=== PATIENT | female | born 1965 | race Caucasian/White ===

== ENCOUNTER 2025-04-21 15:07 | Observation (INO) | payer MEDICAID, SELFPAY ==
--- NOTE | 2025-04-20 07:00 | EKG_ITS ---
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
[2025-04-20 10:28] VITALS: BMI 53.1
[2025-04-20 11:02] LABS: Collection Type, Urine Clean Catch
--- NOTE | 2025-04-20 11:48 | ESHP_ITS ---
RE: ELIJAH HELM : 1965 DATE OF ADMISSION: 04/20/2025 HISTORY OF PRESENT ILLNESS: A 59-year-old female who was referred to me. She has a mass in her urinary bladder. She has a history of fibroids in the uterus. She had a history of gross hematuria before. There is no burning in the urine. PAST MEDICAL HISTORY: There is no history of diabetes mellitus. She does have a history of hypertension. PAST SURGICAL HISTORY: Cholecystectomy and a cyst from the cervix removed. SOCIAL HISTORY: The patient has one son. HOME MEDICATIONS: She takes no medications. ALLERGIES: SHE IS ALLERGIC TO CODEINE AND SOME BLOOD PRESSURE MEDICATION. MONOPRIL. PHYSICAL EXAMINATION: HEENT: Normal. NECK: Supple. LUNGS: Clear. CARDIOVASCULAR: Heart sounds are normal. ABDOMEN: Soft without any organomegaly. No guarding. No rigidity. The patient is extremely obese, 320 pounds. PELVIC: Examination is negative. LABORATORY DATA: Cystoscopy revealed a mass on the dome of the bladder about 2- 3 cm in size. IMPRESSION: 1. Bladder tumor. 2. History of gross hematuria. 3. Obesity. PLAN: Transurethral resection of bladder tumor. Planned procedure risks and complications have been discussed with the patient. The patient has understood them and agreed to proceed. DT: 11:12:32 TT: 11:46:00 Ref: [id number] - TID: [id number]
[2025-04-20 12:36] LABS: Basophils % (Auto) 0 % (0-2.5); Eosinophils # (Auto) 0.1 Thou/mm3 (0.0-0.5); Eosinophils % (Auto) 1 % (0-10); Hematocrit 42.7 % (36.0-46.0); Immature Granulocytes % (Auto) 0 % (0-0); Immature Granulocytes Auto 0.02 Thou/mm3 (0.00-0.00); Lymphocytes # (Auto) 1.8 Thou/mm3 (1.0-4.8); Lymphocytes % (Auto) 22 % (10-50); Mean Corpuscular HGB Conc 32.8 g/dl (31.0-37.0); Mean Corpuscular Hemoglobin 27.3 pg (25.0-35.0); Mean Corpuscular Volume 83 fL (80-100); Monocytes # (Auto) 0.5 Thou/mm3 (0.0-0.8); Monocytes % (Auto) 7 % (0-12); Neutrophils # (Auto) 5.7 Thou/mm3 (1.8-7.7); Neutrophils % (Auto) 70 % (37-80); Nucleated Red Blood Cell % 0 /100 WBC (0); Platelet Count 242 Thou/mm3 (140-440); RDW Standard Deviation 42.6 fL (36.4-46.3); Red Blood Count 5.12 Miln/mm3 (4.00-5.20); White Blood Count 8.1 Thou/mm3 (3.6-11.0)
[2025-04-20 12:45] LABS: Alanine Aminotransferase 14 U/L (10-49); Albumin, Serum 4.4 gm/dL (3.4-4.8); Albumin/Globulin Ratio 2.1 (1.2-2.2); Alkaline Phosphatase 74 U/L (46-116); Anion Gap 10 (7-16); Aspartate Amino Transferase 19 U/L (0-34); BUN/Creatinine Ratio 11 Ratio (12-20); Bilirubin,Total 0.5 mg/dL (0.3-1.2); Blood Urea Nitrogen 11 mg/dL (9-23); Calcium 9.2 mg/dL (8.3-10.6); Calcium (Corrected) 9.2 mg/dL (8.5-10.1); Carbon Dioxide 26.7 mMol/L (20.0-31.0); Chloride 105 mMol/L (98-107); Globulin 2.1 gm/dL (2.3-3.5); Glucose 100 mg/dL (74-106); Osmolality,Calculated 282 (275-295); Potassium 4.3 mMol/L (3.4-5.1); Sodium 142 mMol/L (136-145); Total Protein 6.5 gm/dL (5.7-8.2); eGFR > 60 See Note
[2025-04-20 13:02] LABS: Bilirubin,Urine Negative (Negative); Blood,Urine 1+ (Negative); Clarity,Urine Clear (Clear/Hazy); Color,Urine Colorless (Lt Yel-Yel); Glucose, Urine Negative (Negative); Hyaline Casts,Urine < 1 /hpf (0-1); Ketones,Urine Negative (Negative); Leukocyte Esterase,Urine Positive (Negative); Nitrite,Urine Negative (Negative); PH,Urine 6.5 (5.0-7.0); Protein,Urine Negative (Neg - Trace); RBC,Urine 1 /hpf (0-3); Specific Gravity,Urine 1.005 (1.001-1.035); Squamous Epithelial Cell,Urine < 1 /hpf (0-5); Urobilinogen,Urine Negative mg/dL (0.0-1.0); WBC,Urine 13 /hpf (0-5)
[2025-04-21] VITALS (31 sets, daily range): BP systolic 121–197; BP diastolic 82–122; PULSE 78–115; RESP 12–20; TEMP 36–36.9; O2SAT 96–100; BMI 52.9
--- NOTE | 2025-04-21 09:25 | SUR.PHASEI ---
7411 Patient arrived to recovery sitting up in bed, restless- emotional support provided, on oxygen 10L via oxy mask, breathing unlabored, vital signs stable, denies pain, urinary catheter 20F in place with leg secure; dark pink urine present in bullard bag, denies nausea, report received from Santos MOISE and Dr. Delvalle/Osiel SRNA
--- NOTE | 2025-04-21 10:11 | XR_ITS ---
Examination: AP chest single view Technique one AP portable upright chest single view Date and time: April 21, 2025 1025 hours INDICATIONS: Postop chest x-ray today. FINDINGS: Mild prominence left ventricle Poor definition right cardiac contour Left lung clear Intact osseous structures IMPRESSION: Recommend lateral chest 2 follow-up to exclude pneumonia in the right middle lobe
--- NOTE | 2025-04-21 10:23 | XR_ITS ---
Examination: CT abdomen and pelvis without contrast. Coronal 3-D reconstructions. Sagittal 2-D reconstructions. Date and time of exam:April 21, 2025 1334 hours INDICATIONS: Postop removal of cyst from a ladder today CTDI: vol (mGy): 25 DLP: (mGycm): 1487 Technique: Axial images of the abdomen have been obtained, 3 mm slice thickness Intravenous contrast material has not been administered. Low dose protocols were performed. One or more of the following dose reduction techniques were used; automated exposure control, adjustment of the mA and/or KV according to patient size, use of iterative reconstruction technique. Findings: No focal liver or splenic lesion Absent gallbladder No pancreatic or adrenal mass No renal or ureteral calculi, no hydronephrosis Aorta normal size Normal appendix Anteverted uterus with markedly enlarged and irregular fundus of the uterus Right pelvic cystic mass, 7.5 cm Urinary bladder is contracted around a Bonilla catheter IMPRESSION: Enlarged uterine fundus with 7.5 cm right pelvic cystic mass Recommend pelvic sonography follow-up
[2025-04-21] MEDS: hydrALAZINE INJ 20 MG/ML VIAL 5 MG IV ×2 (10:26→11:08)
--- NOTE | 2025-04-21 10:32 | SUR.PHASEII ---
1032 Chest XRAY complete per MD order
--- NOTE | 2025-04-21 10:40 | SUR.PHASEI ---
1040 patients friend at bedside with patient
--- NOTE | 2025-04-21 11:46 | SUR.PHASEII ---
1146 patients blood pressure continues to bed elevated 164/111, verbal order read-back received for Hydralazine 5mg IVP x1 order, will place order in EMR and administer per MD order
[2025-04-21] MEDS: hydrALAZINE INJ 20 MG/ML VIAL 5 MG IVP (11:56)
[2025-04-21] MEDS: RINGERS LACTATED 1000 ML 1,000 ML 100 ML IV ×2 (12:01→23:10)
--- NOTE | 2025-04-21 12:15 | SUR.PHASEII ---
1215 Dr. Delvalle made aware of patients continued elevated blood pressure 185/101, after 3 doses of medication per anesthesia order, Dr. Delvalle states he's ok with this blood pressure as this is patients baseline, no new orders at this time will continue to monitor patient
--- NOTE | 2025-04-21 12:33 | SUR.PHASEII ---
patient talking to her sister on the telephone
--- NOTE | 2025-04-21 12:57 | SUR.PHASEII ---
1257 Report given to Carlyn MOISE
--- NOTE | 2025-04-21 12:57 | SUR.PHASEII ---
Received report on pt. s/p surgery from Floridalma Jones RN. Pt. is resting, talking with friend at bedside, VSS, no c/o pain or nausea at this time, bullard catheter in place, bright red blood in collection bag.
--- NOTE | 2025-04-21 13:25 | PD.ANESPROG ---
Documentation for date of: 04/21/25 ANESTHESIA NOTE: Patient had GETA for bladder tumor procedure this morning. Pre-op, she has high BMI and she reported h/o fast heart rate but denied h/o HI and denied recent cardiopul sx and denied seeing research laboratory specialist before, also denied h/o sleep apnea. Her pre-op EKG showed sinus tachycardia. She did well intra-op, although on arrival to OR, her heart rhythm and rate was fluctuating from sudden but brief sinus narinder down to 50s to sinus tachy with frequent PACs and her BP was elevated also but she was asymptomatic. She did well intra-op and her vitals were maintained. She has been in PACU post op so far doing well, resting and intermittently talking with RN or her visitor, her rhythm has been at her baseline of 90-100s sinus. Her BP was elevated, SBP 180 and DBP 110 and she has been treated by RN with 3 doses of 5 mg IV Hydralazine per my PACU orders and it has improved to SBP 170 and DBP 90. She denied chest pain, headache, moves all extremities and is otherwise calm and NAD. I discussed her rhythm with the surgeon, who is planning to keep her for overnight observation anyway, and I recommended to have her in tele watch and consult medicine or cardiology. I discussed this with the patient also. Soren Delvalle MD Anesthesia Progress Note Progress Note Most recent Vital Signs: Last Vital Signs Temp 98.4 F 04/21/25 12:25 Pulse 97 04/21/25 12:25 Resp 20 04/21/25 12:25 BP 171/95 H 04/21/25 12:25 Pulse Ox 100 04/21/25 12:25 O2 Flow Rate 5 04/21/25 09:40
--- NOTE | 2025-04-21 13:29 | SUR.PHASEII ---
Pt. to CT via gurney transported by staff.
--- NOTE | 2025-04-21 13:33 | SUR.PHASEII ---
1333 Report received from Carlyn MOISE
--- NOTE | 2025-04-21 13:43 | SUR.PHASEII ---
[address]
--- NOTE | 2025-04-21 14:48 | SUR.PHASEII ---
1436 Report given to Venu RN, patient meets discharge criteria from recovery, awake and talking with staff, breathing unlabored, vital signs stable, denies pain and nausea, urinary catheter in place with leg secure; draining to bullard bag with clear dark pink urine present in Bullard bag, drinking fluids; tolerating well. 1448 Patient transported via gurney to room 371 without incident, Venu RN promptly in patients room, patient able to transfer herself from the gurney to the bed, patient resting comfortably in bed with call light in reach when this mortgage underwriter left patients room
--- NOTE | 2025-04-21 17:16 | ESCONSULT_ITS ---
HPI Data of Consult Patient: new to practice Consult date: 04/21/25 Requesting Physician: Gee Nava MD Admitting Provider: Gee Nava MD Attending Provider: Gee Nava MD Primary Care Provider: JEANETTE Rossi Consult Narrative Reason for consult: Hypertension, tachycardia History of present illness: Ms. Price is a 59-year-old female with past medical history of bladder tumor and right pelvic cystic mass who was admitted to the hospital by urology service, patient was referred to urologist for bladder mass and gross hematuria. Patient also has history of fibroids in the uterus by urology, patient had cystoscopy, bladder biopsies, fulguration and transurethral resection of part of bladder tumor done by urologist today. Postop patient was found to have elevated heart rate, EKG shows sinus tachycardia. Patient was also found to be hypertensive, was given 3 doses of IV hydralazine. Patient systolic blood pressure did improve from 180/100 to 170/90. Decision was made by anesthesia and urology to consult cardiology and hospitalist service. Patient at bedside currently complains of mild pain, she denies any active history of cardiac problems, denies seeing a customer experience professional, does report remote history of hypertension was on ROLAND inhibitor in the past, she currently denies taking any medications. Of note patient's BMI is 52.9, she does complain of bone spurs. Patient reports that at her primary care office her blood pressure is within the range 110/60's, though she does report that it is elevated at times. Currently at bedside patient is noted to be tachycardic, otherwise rhythm regular. Patient denies any history of hyperlipidemia, diabetes and thyroid disorder. Patient reports following up outpatient with [facility] for the pelvic mass. Otherwise patient denies any chest pain, shortness of breath, abdominal pain, headache, nausea and vomiting. cc:: cc: Gee Nava MD Review of Systems Review of Systems Narrative Review of Systems: ROS: -CONSTITUTIONAL: Denies weight loss, fever and chills. -HEENT: Denies changes in vision and hearing. -RESPIRATORY: Denies SOB and cough. -CV: Denies palpitations and Chest Pain. -GI: Denies abdominal pain, nausea, vomiting,constipation and diarrhea. -: Lower abdomen pain, status post procedure. -MSK: Denies myalgia and joint pain. -SKIN: Denies rash and pruritus. -NEUROLOGICAL: Denies headache and syncope. -PSYCHIATRIC: Denies recent changes in mood. Denies anxiety and depression. Past Medical History Past Medical History Comments PMH COMMENT: PMH: As above PSHx: Gallbladder surgery and cyst from cervix removed Allergies: Pollen, Paxlovid, fosinopril, hydrochlorothiazide, nirmatrelvir Social history: Patient has 1 son -Smoking: Denies -Alcohol Use: Denies -Illicit Drug Use: Denies Family History: Denies any family history of cardiac problems. Exam Vital Signs Temp Pulse Resp BP Pulse Ox O2 Del Method O2 Flow Rate 97.4 F 101 H 18 180/97 H 97 Room Air 5 04/21/25 16:00 04/21/25 16:04/21/25 16:04/21/25 16:04/21/25 16:04/21/25 16:04/21/25 09:40 Narrative Exam Physical Exam General: Awake and in no acute distress. Conversational and non-toxic appearing. HEENT: Normocephalic, atraumatic, mucous membranes moist. Heart: Tachycardia, regular rhythm, no murmurs. Lungs: Clear to auscultation with no wheezing or crackles. Abdomen: Soft, obese, nondistended, nontender, positive bowel sounds. Lower abdomen tenderness. Neurologic: Alert and oriented x3, no gross neurological deficit, and patient able to move all 4 extremities. Extremities: No edema. Skin: No rash or ecchymoses. Results Labs 04/20/25 10:50 04/20/25 10:50 Quality Measures Quality Measures none Medications Home Medications and Allergies Allergies Allergy/AdvReac Type Severity Reaction Status Date / Time fosinopril (From Monopril Allergy Intermediate Hypertensio Verified 04/21/25 09:14 HCT) n hydrochlorothiazide (From Allergy Intermediate Hypertensio Verified 04/21/25 09:14 Monopril HCT) n nirmatrelvir (From Paxlovid) Allergy Intermediate Gastrointestinal Verified 04/21/25 09:14 Upset ritonavir (From Paxlovid) Allergy Intermediate Gastrointestinal Verified 04/21/25 09:14 Upset Visit Medications Hydrocodone Bitart/Acetaminophen (Hydrocodone/Apap 5/325 Tablet) 1 tab PO Q6HR PRN PRN Reason: Pain Scale 2-3 (Mild) Stop: 04/26/25 10:00 Levofloxacin/Dextrose (Levaquin Ivpb) 500 mg in 100 mls @ 100 mls/hr IV Q24H [facility] Stop: 04/29/25 07:59 Lactated Ringer's (Lactated Ringers) 1,000 mls @ 100 mls/hr IV .Q10H MICHAELA Stop: 05/21/25 10:06 Last Admin: 04/21/25 12:01 Dose: 100 mls/hr Ketorolac Tromethamine (Ketorolac Inj 30 Mg/Ml Vial) 30 mg IVP Q6HR PRN PRN Reason: PAIN SCALE 4-6 (Moderate Stop: 04/26/25 10:00 Meperidine HCl (Meperidine Inj 50 Mg/Ml Vial) 75 mg IM Q6HR PRN PRN Reason: PAIN SCALE 7-10 (Severe Stop: 04/26/25 10:00 Ondansetron HCl (Ondansetron Inj 2 Mg/Ml Inj 2 Ml) 4 mg IVP Q6HR PRN PRN Reason: NAUSEA OR VOMITING Stop: 05/21/25 10:00 Promethazine HCl (Promethazine Inj 25 Mg/Ml Vial) 25 mg IM Q6HR PRN PRN Reason: To be given with Dermerol Stop: 05/21/25 10:00 Discontinued Medications Fentanyl Citrate (Fentanyl Cit Inj 50 Mcg/Ml Amp 2ml) 50 mcg IVP Q5MIN PRN PRN Reason: PAIN SCALE 4-10(Mod-Sev Hydralazine HCl (Hydralazine Inj 20 Mg/Ml Vial) 5 mg IV Q20MIN PRN PRN Reason: SEE COMMENTS Last Admin: 04/21/25 11:08 Dose: 5 mg Hydralazine HCl (Hydralazine Inj 20 Mg/Ml Vial) 5 mg IVP X1 ONE Stop: 04/21/25 11:47 Last Admin: 04/21/25 11:56 Dose: 5 mg Hydromorphone HCl (Hydromorphone Inj 2 Mg/Ml Vial) 0.5 mg IVP Q10MIN PRN PRN Reason: PAIN SCALE 4-10(Mod-Sev Lactated Ringer's (Lactated Ringers) 1,000 mls @ 20 mls/hr IV .Q24H ONE Stop: 04/22/25 05:59 Promethazine HCl 12.5 mg/ (Sodium Chloride) 50.5 mls @ 2.5 mls/min IV X1 PRN PRN Reason: NAUSEA OR VOMITING Meperidine HCl (Meperidine Inj 50 Mg/Ml Vial) 12.5 mg IVP Q5M PRN PRN Reason: SHIVERING Stop: 04/26/25 08:59 Metoprolol Tartrate (Metoprolol Tartrate Inj 1 Mg/Ml Amp 5 Ml) 1 mg IVP Q5MIN PRN PRN Reason: TACHYCARDIA Midazolam HCl (Midazolam Inj 1 Mg/Ml Vial 2 Ml) 1 mg IVP Q5MIN PRN PRN Reason: ANXIETY Stop: 04/22/25 08:59 Ondansetron HCl (Ondansetron Inj 2 Mg/Ml Inj 2 Ml) 4 mg IVP X1 PRN PRN Reason: NAUSEA OR VOMITING Assessment & Plan Plan Assessment and plan: Summary: Ms. Price is a 59-year-old female with past medical history of bladder tumor and right pelvis cystic mass who was admitted to [facility] by urology service for transurethral resection of part of bladder tumor. Postop patient had episode of sinus tachycardia, was significantly hypertensive. Hospitalist and cardiology service were consulted. #Hypertension Patient blood pressure at bedside noted to be 160/90, heart rate around 100, patient denies any pain currently. Patient does have allergies to fosinopril and hydrochlorothiazide. EKG 04/20 reviewed shows sinus tachycardia Plan: - Start amlodipine 5 mg daily - Clonidine 0.1 mg as needed for SBP more than 160/DBP more than 100 - Will repeat EKG - Cardiology consulted by urology service, appreciate recommendations - Pain management per urology - Follow CBC/CMP in a.m. - Ordered A1c, lipid panel, TSH/free T4 for a.m. #Large bladder tumor status post transurethral resection of part of bladder tumor Patient underwent cystoscopy, bladder biopsy, fulguration and transurethral resection of part of bladder tumor today. - Pain management per urology - Patient on Levaquin, started by urology - Follow urine cultures #Right pelvic cystic mass History of fibroids -Patient is established with [facility] outpatient, continue to follow #Morbid obesity Patient BMI 52.9, patient advised to lose weight. DVT prophylaxis: Postop, not indicated GI prophylaxis: Not indicated Diet: Full liquid Lines: Peripheral IV Code status: Full code Case discussed with Attending Dr. Calixto. Diana Velasquez PGY1 Disclaimer: This note was dictated by speech recognition. Minor errors in broadcast news producer may be present due to voice recognition software. Attending Provider Attestation/Addendum Face to face evaluation was performed by me. I have personally seen and examined the patient. I discussed the assessment and plan with the entire medicine team. I reviewed available medical records, imaging studies, laboratory results. I agree with the above subjective data, objective findings, assessment and plan except as corrected by me or noted below Elevated blood pressure readings, History of hypertension in the past patient stopped taking medications apparently according to her. Morbid obesity Palpitations Possible bladder tumor Gross hematuria after surgery We were consulted by urology request also urologist asking to consult cardiology for palpitations. Keep electrolytes at recommended range K > 4, Mg > 2, start calcium channel nathaniel low dosage as well as as needed p.o. clonidine for blood pressure goal 165 systolic. Postop management and discharge planning per primary team?urology. -Due to high blood pressure. Patient with Bnoilla and gross hematuria inside the bag, IV fluids per urology More than > 30 minutes spent on the encounter
--- NOTE | 2025-04-21 17:22 | ESOP_ITS ---
RE: ELIJAH HELM : 1965 DATE OF OPERATION: 04/21/2025 PREOPERATIVE DIAGNOSIS: Large bladder tumor on the dome of the bladder. POSTOPERATIVE DIAGNOSES: Large bladder tumor on the dome of the bladder with marked obesity, the patient weighing more than 300 pounds and cardiac arrhythmia. PROCEDURE PERFORMED: Cystoscopy, bladder biopsies, fulguration, and transurethral resection of part of the bladder tumor. ANESTHESIA: General by Dr. Delvalle. INDICATION: The patient is a 59-year-old female who was referred to me with a history of gross hematuria. She has a history of uterine fibroids. She had a cystoscopy done which revealed in the office a large bladder tumor coming from the dome of the bladder, at least 3-4 cm in size with edema surrounding it. This was a solid-appearing tumor. There were no other tumors in the bladder. Ureteral orifices are found to be normal in position and appearance. The patient has a history of gross hematuria in the past. The patient is now scheduled to have cystoscopy and transurethral resection of bladder tumor. Planned procedure, risks, and complications have been discussed with the patient. The patient has understood them and agreed to proceed. DESCRIPTION OF PROCEDURE: After the patient was brought to the operating table under adequate general anesthesia, the patient was placed in dorsal lithotomy position. The patient was found to have cardiac arrhythmia at this time by Dr. Delvalle. The patient is very obese, more than 300 pounds. Cystoscopy was then carried out in a standard fashion, which revealed the urethra is open. The scope was introduced into the bladder. Residual urine about 10 mL yellow and clear and was sent for culture and sensitivity examination. Inspection of the bladder revealed solid tumors arising from the bladder dome about 3-4 cm in size. It is a solid-appearing tumor with surrounding edema and something trying to push inside the bladder. I was able to do some biopsies of this tumor and tumor appeared to be quite vascular. This was fulgurated. Transurethral resection of the part of the tumor was carried out. The patient is very obese and has cardiac arrhythmia. The part of the tumor, which was resected was sent for examination. It appears that the patient has a solid-appearing tumor of the bladder. The resected tumor was removed from the bladder by using Ellik evacuator. Complete hemostasis was obtained. Scope was withdrawn and a 20-Setswana 2-way Bonilla catheter was inserted into the bladder and was left indwelling. Catheter was connected to the drainage bag. The patient was then transferred to the recovery room in a satisfactory condition. She tolerated the entire procedure well. PLAN: The patient will be admitted overnight. We will have a cardiology consult because of her anemia. We also will try to get a CT scan of the abdomen and pelvis to see if there is any tumor outside the bladder or surrounding structures and also we will get chest x-ray. The patient is markedly obese with morbid obesity. DT: 10:59:13 TT: 17:21:00 Ref: [id number] - TID: [id number]
[2025-04-21] MEDS: amLODIPine BESYLATE 5 MG TABLET PO (17:51)
--- NOTE | 2025-04-21 18:09 | EKG_ITS ---
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
--- NOTE | 2025-04-21 18:44 | ESCONSULT_ITS ---
HPI Data of Consult Requesting Physician: Song Calixto MD Admitting Provider: Gee Nava MD Attending Provider: Song Calixto MD Primary Care Provider: JEANETTE Rossi Consult Narrative History of present illness: CC: planned tumor resection 59-year-old female with a past medical history of bladder tumor w/ hematuria, history of uterine fibroid, and remote history of hypertension over 27 years ago on no medication, morbid obesity. Patient was admitted under Dr. Nava, urologist, for planned cystoscopy, bladder biopsies, fulguration, and transurethral resection of bladder tumor. Cardiolgoy consulted by Dr. Nava for cardiac arrhythmia post op and hypertension hospitalist team. Patient stated after procedure felt palpitations. Patient denied chest pain, shortness of breath, or chest pressure. Mild nausea but patient believed secondary to medication administered for procedure. Denied emesis. Patient denied headache or blurry vision. Hematuria present. Patient passed flatulence after tumor resection. Previous blood pressure medication monopril 27 years ago but nothing since then. Blood pressure at home ranges usually 110/65. Patient noted to have trace pedal edema. Patient stated she snores but no sleep study on board or never used a Cpap before. Denied diabetes or hyperlipidemia. 04/21/2025: Cardiology consulted for cardiac arrhythmia post operative. PMH: Hypertension, remote history in 27 years ago and was briefly started on monopril Hematuria remote history of Bronchitis Severe morbid obesity with BMI greater than 52 Chronic back pain Uterine fibroid Bladder tumor Medication: None PSH: Cholecystectomy & cyst from the cervix Social: -Denied Smoking History -Denied Alcohol Use -Denied Illicit Drug Use -Used to work as a attendance secretary previously for an [employer] -Disabled since 2020 2021 and has been has not been working -No family lives close by and has 1 friend Marion who drives her to the [facility] or family health care Allergies Fosinopril hydrochlorothiazide Nirmatrelvir Ritonavir cc:: cc: Song Calixto MD Review of Systems Review of Systems Narrative Review of Systems: General appearance: NO weight change, NO fatigue, NO weakness, NO fever, NO chills, NO night sweats, No cough Skin: NO rash, NO itching, NO sores, NO moles HEENT: NO Trauma, NO nausea, NO vomiting, NO visual changes, NO blurry vision, NO double vision, NO tinnitus, NO vertigo, NO ear discharge, NO rhinorrhea, NO stuffiness, NO sneezing, NO allergy, NO epistaxis. NO Hoarseness, NO sore throat, NO swollen neck. Cardiac: YES Palpitations, NO dyspnea on exertion, NO orthopnea, NO paroxysmal nocturnal dyspnea, Yes trace edema Respiratory: NO Shortness of Breath, NO Wheezing, NO Cough, NO Sputum, NO hemoptysis GI:NO appetite, NO nausea, NO vomiting, NO dysphagia, NO changes in bowel frequency, NO stool color, NO diarrhea, NO constipation, NO hemetemesis, NO hemorrhoids, NO melena, NO hematechezia, NO abdominal pain, NO jaundice Renal: NO frequency, NO hesitancy, NO urgency, NO hematuria, NO nocturia, NO incontinence MSK: NO muscle weakness, NO gout, NO arthritis, NO muscle stiffness Neuro: NO headaches, NO tremors, NO weakness, NO paralysis, NO seizures, NO loss of consciousness, NO numbness. Hem: NO anemia, NO easy bruising/bleeding, NO petechiae, NO purpura Endo: NO heat/cold intolerance, NO excessive sweating, NO polyuria, NO polydipsia, NO polyphagia, NO thyroid problems, NO diabetes Pysch: NO mood, NO anxiety, NO depression Exam Vital Signs Temp Pulse Resp BP Pulse Ox O2 Del Method O2 Flow Rate 97.4 F 101 H 18 180/97 H 97 Room Air 5 04/21/25 16:00 04/21/25 17:51 04/21/25 16:00 04/21/25 17:51 04/21/25 16:00 04/21/25 16:00 04/21/25 09:40 Narrative Exam General Appearance: Alert & Oriented X3, well-nourished female who is lying in bed in no acute distress HEENT: Skull symmetrical and atraumatic. Conjunctivae pink and moist. Pupils equal, round, reactive to light and accommodation (PERRL). External ear without lesion or discharge. Cardio: Normal Rate and Rhythm with S1 and S2 heart sounds. Systolic murmur noted on. No bruits on carotid auscultation. Trace pedal edema. Lungs: Symmetric with good expansion. Chest and back non-tender. Breath sounds vesicular without crackles, wheezing or rhonchi Abdomen: Non-tender, Non-distended, Normal Reactive Bowel Sounds Neuro: Alert, cooperative, oriented to person, place, and time. Speech clear. CN grossly intact. Upper motor strength 5/5 and Lower motor strength 5/5. Sensation intact. Results Labs 04/20/25 10:50 04/20/25 10:50 Quality Measures Quality Measures none Medications Home Medications and Allergies Allergies Allergy/AdvReac Type Severity Reaction Status Date / Time fosinopril (From Monopril Allergy Intermediate Hypertensio Verified 04/21/25 09:14 HCT) n hydrochlorothiazide (From Allergy Intermediate Hypertensio Verified 04/21/25 09:14 Monopril HCT) n nirmatrelvir (From Paxlovid) Allergy Intermediate Gastrointestinal Verified 04/21/25 09:14 Upset ritonavir (From Paxlovid) Allergy Intermediate Gastrointestinal Verified 04/21/25 09:14 Upset Visit Medications Hydrocodone Bitart/Acetaminophen (Hydrocodone/Apap 5/325 Tablet) 1 tab PO Q6HR PRN PRN Reason: Pain Scale 2-3 (Mild) Stop: 04/26/25 10:00 Amlodipine Besylate (Amlodipine Besylate 5 Mg Tablet) 5 mg PO QDAY [facility] Stop: 05/21/25 17:29 Last Admin: 04/21/25 17:51 Dose: 5 mg Clonidine (Clonidine Hcl 0.1 Mg Tablet) 0.1 mg PO Q8H PRN PRN Reason: SBP> 160 and DBP > 100 Stop: 05/21/25 17:18 Levofloxacin/Dextrose (Levaquin Ivpb) 500 mg in 100 mls @ 100 mls/hr IV Q24H MICHAELA Stop: 04/29/25 07:59 Lactated Ringer's (Lactated Ringers) 1,000 mls @ 100 mls/hr IV .Q10H [facility] Stop: 05/21/25 10:06 Last Admin: 04/21/25 12:01 Dose: 100 mls/hr Ketorolac Tromethamine (Ketorolac Inj 30 Mg/Ml Vial) 30 mg IVP Q6HR PRN PRN Reason: PAIN SCALE 4-6 (Moderate Stop: 04/26/25 10:00 Meperidine HCl (Meperidine Inj 50 Mg/Ml Vial) 75 mg IM Q6HR PRN PRN Reason: PAIN SCALE 7-10 (Severe Stop: 04/26/25 10:00 Ondansetron HCl (Ondansetron Inj 2 Mg/Ml Inj 2 Ml) 4 mg IVP Q6HR PRN PRN Reason: NAUSEA OR VOMITING Stop: 05/21/25 10:00 Promethazine HCl (Promethazine Inj 25 Mg/Ml Vial) 25 mg IM Q6HR PRN PRN Reason: To be given with Dermerol Stop: 05/21/25 10:00 Discontinued Medications Fentanyl Citrate (Fentanyl Cit Inj 50 Mcg/Ml Amp 2ml) 50 mcg IVP Q5MIN PRN PRN Reason: PAIN SCALE 4-10(Mod-Sev Hydralazine HCl (Hydralazine Inj 20 Mg/Ml Vial) 5 mg IV Q20MIN PRN PRN Reason: SEE COMMENTS Last Admin: 04/21/25 11:08 Dose: 5 mg Hydralazine HCl (Hydralazine Inj 20 Mg/Ml Vial) 5 mg IVP X1 ONE Stop: 04/21/25 11:47 Last Admin: 04/21/25 11:56 Dose: 5 mg Hydromorphone HCl (Hydromorphone Inj 2 Mg/Ml Vial) 0.5 mg IVP Q10MIN PRN PRN Reason: PAIN SCALE 4-10(Mod-Sev Lactated Ringer's (Lactated Ringers) 1,000 mls @ 20 mls/hr IV .Q24H ONE Stop: 04/22/25 05:59 Promethazine HCl 12.5 mg/ (Sodium Chloride) 50.5 mls @ 2.5 mls/min IV X1 PRN PRN Reason: NAUSEA OR VOMITING Meperidine HCl (Meperidine Inj 50 Mg/Ml Vial) 12.5 mg IVP Q5M PRN PRN Reason: SHIVERING Stop: 04/26/25 08:59 Metoprolol Tartrate (Metoprolol Tartrate Inj 1 Mg/Ml Amp 5 Ml) 1 mg IVP Q5MIN PRN PRN Reason: TACHYCARDIA Midazolam HCl (Midazolam Inj 1 Mg/Ml Vial 2 Ml) 1 mg IVP Q5MIN PRN PRN Reason: ANXIETY Stop: 04/22/25 08:59 Ondansetron HCl (Ondansetron Inj 2 Mg/Ml Inj 2 Ml) 4 mg IVP X1 PRN PRN Reason: NAUSEA OR VOMITING Assessment & Plan Plan A 59 yo female with a past medical history of bladder tumor w/ hematuria, history of uterine fibroid, and remote history of hypertension over 27 years ago on no medication. Patient was admitted for bladder tumor w/ hematuria s/p cystoscopy, bladder biopsy, and resection of bladder tumor. Cardiology consulted for abnormal cardiac rhythm. #Abnormal EKG #rule out arrhythymia #Sinus tachycardia #Pedal Edema, trace Abnormal EKG noted to have deep Q waves likely from previous ischemia and r waves. Denied chest pain or chest pressure. NO ST elevation noted. Given history of snoring PAH can not be ruled out given trace pedal edema. Positive for palpitations. No previous lipid panel, TSH, or A1c on file. EKG: Sinus Tachycardia, QRS 102, QTC 439, V1, V2 deep q waves, and V3 V4 noted r waves. Plan -TSH, A1c, Lipid panel -Echo Stat -K>4 and Mag >2 -Monitor patient Electrolytes. #Hypertension Past medical history of hypertension, initially diagnosed 27 years ago and has been off medication for several years as patinet stated home readings within normal limits. Patient follow with PCP, Yina Gibbons, who does never resumed anti-hypertensive medication. Plan -Managed by hospitalist team -Started patient on Amlodipine 5 mg qday -continue to monitor, may need to increase dose #bladdder Tumor s/p resection #Hematuria # large tumor on the dome of the bladder and had cystoscopy with bladder biopsy, fulguration and transurethral resection of part of the bladder tumor by Dr. Nava Plan -Managed by primary team Health Maintenance: Disp: Pt is currently admitted to floors for further management of bladder resection,cardiology consulted for abnormal EKG. FEN: Full liquid diet DVT: ambulatory Code: Full - The patient's plan was discussed with attending Dr. Payam Raines MD PGY1 Internal Medicine Attending Provider Attestation/Addendum I have personally seen and examined the patient separately on the above date of service and discussed the plan of care with the resident. I reviewed the resident Dr. Elodia Raines consultation progress note and agree with the resident findings and plan in the note above and have also edited the documentation to reflect my findings and plan. A 59-year-old female with a past medical history of bladder tumor, with hematuria, history of uterine fibroid, hypertension, morbid severe obesity with a BMI greater than 50 was admitted for an elective surgery for the large tumor on the dome of the bladder and had cystoscopy with bladder biopsy, fulguration and transurethral resection of part of the bladder tumor by Dr. Nava Patient apparently developed arrhythmia while in the OR overnight patient being her heart rate fluctuated since with sinus bradycardia in the 50s and sinus tachycardia with frequent PACs during the procedure and also BP was elevated intraoperatively and postoperatively. Cardiology was consulted for further evaluation of the cardiac arrhythmia. EKG performed showed sinus tachycardia with Q waves in the anteroseptal as well as anterior leads and left anterior fascicular block. Assessment and plan Patient had heart rate fluctuation with bradycardia and tachycardia during the operation but as per documentation mostly sinus bradycardia and sinus tachycardia with PACs. Will need telemetry strips from the OR to evaluate. He had during the telemetry morning no evidence of any arrhythmia and patient continues to be in sinus tachycardia. Heart rate is around 100-110 bpm. Sinus tachycardia is appropriate response given the recent surgery and pain. Continue telemetry monitoring for now, keep potassium greater than 4 and magnesium greater than 2.0 Patient blood pressure is elevated and the primary team restart the amlodipine for blood pressure control and if heart rate continues to be high and along with the blood pressure patient can be a started on a beta-nathaniel if needed for rate control Patient does have an abnormal EKG with Q waves in the anterolateral leads as well as anterior leads along with left anterior fascicular block. Patient denies any Chest pain chest pressure or other cardiac complaints. Will have an echocardiogram to rule out any kind of regional wall motion abnormalities and also to evaluate LV function RV function and diastolic function as patient also does have trace peripheral edema. Echocardiogram ordered. check TSH, A1C and Lipid profile. Management of rest of the medical conditions as per primary team and other consultants. Thank you for the consult and allowing me to participate in the care of the patient. Cardiology will continue to follow. Hadley Hare M.D. Interventional Cardiology
[2025-04-21] MEDS: cloNIDine HCL 0.1 MG TABLET PO (19:36)
[2025-04-21] MEDS: LABETALOL INJ 5 MG/ML VIAL 20 ML 10 MG IVP (21:40)
[2025-04-22] VITALS (10 sets, daily range): BP systolic 149–171; BP diastolic 75–116; PULSE 75–103; RESP 14–98; TEMP 36.1–36.2; O2SAT 97–98; BMI 53.7
--- NOTE | 2025-04-22 04:41 | PC.NURSE ---
Patient's BP was elevated 171/75. When this RN went to take PRN PO Clonidine to the patient, the patient refused, stating that she wanted to wait so that she could sleep. This RN informed the patient that they would recheck the BP a little later.
[2025-04-22 05:28] LABS: Basophils % (Auto) 0 % (0-2.5); Eosinophils % (Auto) 0 % (0-10); Hematocrit 40.9 % (36.0-46.0); Hemoglobin 13.5 g/dL (12.0-16.0); Immature Granulocytes % (Auto) 1 % (0-0); Immature Granulocytes Auto 0.07 Thou/mm3 (0.00-0.00); Lymphocytes # (Auto) 1.7 Thou/mm3 (1.0-4.8); Lymphocytes % (Auto) 13 % (10-50); Mean Corpuscular Hemoglobin 27.2 pg (25.0-35.0); Mean Corpuscular Volume 83 fL (80-100); Monocytes # (Auto) 1.1 Thou/mm3 (0.0-0.8); Monocytes % (Auto) 8 % (0-12); Neutrophils # (Auto) 10.3 Thou/mm3 (1.8-7.7); Neutrophils % (Auto) 79 % (37-80); Nucleated Red Blood Cell % 0 /100 WBC (0); Platelet Count 226 Thou/mm3 (140-440); RDW Standard Deviation 42.1 fL (36.4-46.3); Red Blood Count 4.96 Miln/mm3 (4.00-5.20); White Blood Count 13.1 Thou/mm3 (3.6-11.0)
[2025-04-22 05:39] LABS: Glucose Estimated Average 88 mg/dL (80-131); Hemoglobin A1C 4.7 % Hgb (4.8-6.0)
[2025-04-22 05:46] LABS: Albumin, Serum 3.9 gm/dL (3.4-4.8); Anion Gap 11 (7-16); BUN/Creatinine Ratio 11 Ratio (12-20); Blood Urea Nitrogen 9 mg/dL (9-23); Calcium 9.2 mg/dL (8.3-10.6); Calcium (Corrected) 9.3 mg/dL (8.5-10.1); Carbon Dioxide 26.2 mMol/L (20.0-31.0); Cardiac Risk Estimate 2.7 RATIO (3.7-5.6); Chloride 106 mMol/L (98-107); Cholesterol 168 mg/dL (132-200); Creatinine (Component) 0.8 mg/dL (0.6-1.3); Estimated Creatinine Clearance 112.3 mL/min (>60); Free T4 (Free Thyroxine) 1.23 ng/dL (0.89-1.76); Glucose 100 mg/dL (74-106); HDL Cholesterol 63 mg/dL (40-60); LDL Cholesterol,Calculated 88 mg/dL (0-130); Osmolality,Calculated 283 (275-295); Phosphorous 4.6 mg/dL (2.4-5.1); Potassium 3.8 mMol/L (3.4-5.1); Sodium 143 mMol/L (136-145); Triglycerides 85 mg/dL (30-150); eGFR > 60 See Note
[2025-04-22] MEDS: cloNIDine HCL 0.1 MG TABLET PO (05:47)
--- NOTE | 2025-04-22 09:21 | PC.SS ---
Follow up note: Dr. Schulz is primary on case.
[2025-04-22] MEDS: Magnesium Sulfate 2 GM Ivpb 2 GM/50 ML BAG IV (09:59)
[2025-04-22] MEDS: POTASSIUM CHLORIDE 10% 20 MEQ/15 ML UDC 40 MEQ PO (09:59)
[2025-04-22] MEDS: amLODIPine BESYLATE 5 MG TABLET 10 MG PO (10:00)
[2025-04-22] MEDS: LEVOFLOXACIN/D5W 500 MG IVPB 500 MG/100 ML BAG 100 MG IV (10:00)
[2025-04-22] MEDS: RINGERS LACTATED 1000 ML 1,000 ML 100 ML IV (10:02)
--- NOTE | 2025-04-22 11:29 | ESPR_ITS ---
<Statement entered by Elba Siegel MD - 04/28/25 08:55> I reviewed above note and agree with findings and plans. I have also personally examined the patient with medicine team and went over assessment and plan with medical team including planning intern and resident physician. Documentation for date of: 04/22/25 Subjective Subjective Interval history: Patient seen and examined at bedside, did receive 2 doses of clonidine as needed for elevated blood pressure. Increased amlodipine to 10 mg daily, has pending echocardiogram with cardiology. Otherwise patient is using [place] for pain management Patient started on atorvastatin by cardiology team. TSH, hemoglobin A1c unremarkable, LDL 88. Will continue to monitor blood pressure today, will consider adding Coreg if needed, will hold clonidine. Exam Vital Signs Temp Pulse Resp BP Pulse Ox O2 Del Method O2 Flow Rate 96.9 F 85 18 149/99 H 97 Room Air 5 04/22/25 08:00 04/22/25 10:00 04/22/25 08:00 04/22/25 10:00 04/22/25 08:00 04/22/25 04:00 04/21/25 09:40 Narrative Exam Physical Exam General: Awake and in no acute distress. Conversational and non-toxic appearing. HEENT: Normocephalic, atraumatic, mucous membranes moist. Heart: Tachycardia, regular rhythm, no murmurs. Lungs: Clear to auscultation with no wheezing or crackles. Abdomen: Soft, obese, nondistended, nontender, positive bowel sounds. Lower abdomen tenderness. Bonilla catheter noted. Neurologic: Alert and oriented x3, no gross neurological deficit, and patient able to move all 4 extremities. Extremities: No edema. Skin: No rash or ecchymoses. Objective Labs 04/22/25 03:55 04/22/25 03:55 Labs: Laboratory Results - last 24 hr 04/22/25 03:55 WBC 13.1 H D RBC 4.96 Hgb 13.5 Hct 40.9 MCV 83 MCH 27.2 MCHC 33.0 RDW Std Deviation 42.1 Plt Count 226 Neut % (Auto) 79 Lymph % (Auto) 13 [place] % (Auto) 8 Eos % (Auto) 0 Baso % (Auto) 0 Neut # (Auto) 10.3 H Lymph # (Auto) 1.7 [place] # (Auto) 1.1 H Eos # (Auto) 0.0 Baso # (Auto) 0.0 Immature Gran # (Auto) 0.07 H Absolute Nucleated RBC 0.00 Immature Gran % 1 H Nucleated RBC % 0 Sodium 143 Potassium 3.8 D Chloride 106 Carbon Dioxide 26.2 Anion Gap 11 BUN 9 Creatinine 0.8 Estim Creat Clear Calc 112.3 eGFR > 60 BUN/Creatinine Ratio 11 L Glucose [address] Glu mg/dL 88 Hemoglobin A1c 4.7 L Calculated Osmolality 283 Calcium 9.2 Corrected Calcium 9.3 Phosphorus 4.6 Magnesium 2.0 Albumin 3.9 D Triglycerides 85 Cholesterol 168 LDL Cholesterol, Calc 88 HDL Cholesterol 63 H Cholesterol/HDL Ratio 2.7 L TSH 0.90 Free T4 1.23 Quality Measures Quality Measures none Assessment & Plan Assessment Current Active Medications: Generic Name Dose Route Start Last Admin Trade Name Freq PRN Reason Stop Dose Admin Hydrocodone Bitart/Acetaminophen 1 tab 04/21/25 10:01 Hydrocodone/Apap 5/325 Tablet PO 04/26/25 10:00 Q6HR PRN Pain Scale 2-3 (Mild) Amlodipine Besylate 10 mg 04/22/25 09:00 04/22/25 10:00 Amlodipine Besylate 5 Mg Tablet PO 05/22/25 08:59 10 mg QDAY MICHAELA Administration Atorvastatin Calcium 20 mg 04/22/25 21:00 Atorvastatin Calcium 20 Mg Tablet PO 05/22/25 20:59 HS MICHAELA Clonidine 0.1 mg 04/21/25 17:19 04/22/25 05:47 Clonidine Hcl 0.1 Mg Tablet PO 05/21/25 17:18 0.1 mg Q8H PRN Administration SBP> 160 and DBP > 100 Levofloxacin/Dextrose 500 mg in 100 mls @ 100 mls/hr 04/22/25 08:00 04/22/25 10:00 Levaquin Ivpb IV 04/29/25 07:59 100 mls/hr Q24H MICHAELA Administration Lactated Ringer's 1,000 mls @ 100 mls/hr 04/21/25 10:07 04/22/25 10:02 Lactated Ringers IV 05/21/25 10:06 100 mls/hr .Q10H MICHAELA Administration Ketorolac Tromethamine 30 mg 04/21/25 10:01 Ketorolac Inj 30 Mg/Ml Vial IVP 04/26/25 10:00 Q6HR PRN PAIN SCALE 4-6 (Moderate Meperidine HCl 75 mg 04/21/25 10:01 Meperidine Inj 50 Mg/Ml Vial IM 04/26/25 10:00 Q6HR PRN PAIN SCALE 7-10 (Severe Ondansetron HCl 4 mg 04/21/25 10:01 Ondansetron Inj 2 Mg/Ml Inj 2 Ml IVP 05/21/25 10:00 Q6HR PRN NAUSEA OR VOMITING Promethazine HCl 25 mg 04/21/25 10:01 Promethazine Inj 25 Mg/Ml Vial IM 05/21/25 10:00 Q6HR PRN To be given with Dermerol Plan Assessment and plan: Summary: Ms. Price is a 59-year-old female with past medical history of bladder tumor and right pelvis cystic mass who was admitted to [facility] by urology service for transurethral resection of part of bladder tumor. Postop patient had episode of sinus tachycardia, was significantly hypertensive. Hospitalist and cardiology service were consulted. #Hypertension Patient blood pressure at bedside noted to be 160/90, heart rate around 100, patient denies any pain currently. Patient does have allergies to fosinopril and hydrochlorothiazide. EKG From 04/21 showed sinus tachycardia, although Q waves noted in V1, V2 TSH, hemoglobin A1c unremarkable, LDL 88. Plan: - Increased amlodipine to 10 mg daily - Started on atorvastatin 80 mg at bedtime by cardiology, likely for LDL goal less than 70 - Will hold clonidine, will consider adding Coreg if patient has elevated blood pressure - Cardiology consulted by urology service, appreciate recommendations - Pain management per urology #Large bladder tumor status post transurethral resection of part of bladder tumor Patient underwent cystoscopy, bladder biopsy, fulguration and transurethral resection of part of bladder tumor today. - Patient has Bonilla catheter intact - Pain management per urology - Patient on Levaquin, started by urology - Follow urine cultures #Right pelvic cystic mass History of fibroids -Patient is established with [facility] [facility] outpatient, continue to follow #Morbid obesity Patient BMI 52.9, patient advised to lose weight. DVT prophylaxis: Postop, not indicated GI prophylaxis: Not indicated Diet: Full liquid Lines: Peripheral IV Code status: Full code Case discussed with Attending Dr. Siegel. Diana Velasquez PGY1 Disclaimer: This note was dictated by speech recognition. Minor errors in tram inspector may be present due to voice recognition software.
--- NOTE | 2025-04-22 12:14 | PC.NURSE ---
Spoke with Dr. Nava over the phone. Per Dr. Gilbert pt ok to dc home but pt is to dc with bullard catheter and is to follow up with his office in 1 week.
--- NOTE | 2025-04-22 13:44 | ESPR_ITS ---
Documentation for date of: 04/22/25 Subjective Subjective Interval history: 59-year-old female with a past medical history of bladder tumor w/ hematuria, history of uterine fibroid, and remote history of hypertension over 27 years ago on no medication, morbid obesity. Patient was admitted under Dr. Nava, urologist, for planned cystoscopy, bladder biopsies, fulguration, and transurethral resection of bladder tumor. Cardiolgoy consulted by Dr. Nava for cardiac arrhythmia post op and hypertension hospitalist team. Patient stated after procedure felt palpitations. Patient denied chest pain, shortness of breath, or chest pressure. Mild nausea but patient believed secondary to medication administered for procedure. Denied emesis. Patient denied headache or blurry vision. Hematuria present. Patient passed flatulence after tumor resection. Previous blood pressure medication monopril 27 years ago but nothing since then. Blood pressure at home ranges usually 110/65. Patient noted to have trace pedal edema. Patient stated she snores but no sleep study on board or never used a Cpap before. Denied diabetes or hyperlipidemia. 04/21/2025: Cardiology consulted for cardiac arrhythmia post operative. 04/22/2025: No overnight events. Patient examinded at bedside. Patient denied chest pain, dyspnea, or palpitations. Overnight patient's systolic blood pressure remained elevated and Labetalol and Clonidine both administered overnight. Amlodipine increased to 10 mg qday. Atorvastatin added 20 mg HS. Echo unremarkable. No need to follow up with cardiology. Please follow with PCP. Exam Vital Signs Temp Pulse Resp BP Pulse Ox O2 Del Method O2 Flow Rate 97.1 F 87 19 155/85 H 98 Room Air 5 04/22/25 12:04/22/25 12:04/22/25 12:04/22/25 12:04/22/25 12:04/22/25 12:04/21/25 09:40 Narrative Exam General Appearance: Alert & Oriented X3, well-nourished female who is lying in bed in no acute distress HEENT: Skull symmetrical and atraumatic. Conjunctivae pink and moist. Pupils equal, round, reactive to light and accommodation (PERRL). External ear without lesion or discharge. Cardio: Normal Rate and Rhythm with S1 and S2 heart sounds. Systolic murmur noted on. No bruits on carotid auscultation. Trace pedal edema. Lungs: Symmetric with good expansion. Chest and back non-tender. Breath sounds vesicular without crackles, wheezing or rhonchi Abdomen: Non-tender, Non-distended, Normal Reactive Bowel Sounds Neuro: Alert, cooperative, oriented to person, place, and time. Speech clear. CN grossly intact. Upper motor strength 5/5 and Lower motor strength 5/5. Sensation intact. Objective Labs 04/22/25 03:55 04/22/25 03:55 Labs: Laboratory Results - last 24 hr 04/22/25 03:55 WBC 13.1 H D RBC 4.96 Hgb 13.5 Hct 40.9 MCV 83 MCH 27.2 MCHC 33.0 RDW Std Deviation 42.1 Plt Count 226 Neut % (Auto) 79 Lymph % (Auto) 13 [place] % (Auto) 8 Eos % (Auto) 0 Baso % (Auto) 0 Neut # (Auto) 10.3 H Lymph # (Auto) 1.7 [place] # (Auto) 1.1 H Eos # (Auto) 0.0 Baso # (Auto) 0.0 Immature Gran # (Auto) 0.07 H Absolute Nucleated RBC 0.00 Immature Gran % 1 H Nucleated RBC % 0 Sodium 143 Potassium 3.8 D Chloride 106 Carbon Dioxide 26.2 Anion Gap 11 BUN 9 Creatinine 0.8 Estim Creat Clear Calc 112.3 eGFR > 60 BUN/Creatinine Ratio 11 L Glucose [address] Glu mg/dL 88 Hemoglobin A1c 4.7 L Calculated Osmolality 283 Calcium 9.2 Corrected Calcium 9.3 Phosphorus 4.6 Magnesium 2.0 Albumin 3.9 D Triglycerides 85 Cholesterol 168 LDL Cholesterol, Calc 88 HDL Cholesterol 63 H Cholesterol/HDL Ratio 2.7 L TSH 0.90 Free T4 1.23 Quality Measures Quality Measures none Assessment & Plan Assessment Current Active Medications: Generic Name Dose Route Start Last Admin Trade Name Freq PRN Reason Stop Dose Admin Hydrocodone Bitart/Acetaminophen 1 tab 04/21/25 10:01 Hydrocodone/Apap 5/325 Tablet PO 04/26/25 10:00 Q6HR PRN Pain Scale 2-3 (Mild) Amlodipine Besylate 10 mg 04/22/25 09:00 04/22/25 10:00 Amlodipine Besylate 5 Mg Tablet PO 05/22/25 08:59 10 mg QDAY MICHAELA Administration Atorvastatin Calcium 20 mg 04/22/25 21:00 Atorvastatin Calcium 20 Mg Tablet PO 05/22/25 20:59 HS MICHAELA Clonidine 0.1 mg 04/21/25 17:19 04/22/25 05:47 Clonidine Hcl 0.1 Mg Tablet PO 05/21/25 17:18 0.1 mg Q8H PRN Administration SBP> 160 and DBP > 100 Levofloxacin/Dextrose 500 mg in 100 mls @ 100 mls/hr 04/22/25 08:00 04/22/25 10:00 Levaquin Ivpb IV 04/29/25 07:59 100 mls/hr Q24H MICHAELA Administration Lactated Ringer's 1,000 mls @ 100 mls/hr 04/21/25 10:07 04/22/25 10:02 Lactated Ringers IV 05/21/25 10:06 100 mls/hr .Q10H MICHAELA Administration Ketorolac Tromethamine 30 mg 04/21/25 10:01 Ketorolac Inj 30 Mg/Ml Vial IVP 04/26/25 10:00 Q6HR PRN PAIN SCALE 4-6 (Moderate Meperidine HCl 75 mg 04/21/25 10:01 Meperidine Inj 50 Mg/Ml Vial IM 04/26/25 10:00 Q6HR PRN PAIN SCALE 7-10 (Severe Ondansetron HCl 4 mg 04/21/25 10:01 Ondansetron Inj 2 Mg/Ml Inj 2 Ml IVP 05/21/25 10:00 Q6HR PRN NAUSEA OR VOMITING Promethazine HCl 25 mg 04/21/25 10:01 Promethazine Inj 25 Mg/Ml Vial IM 05/21/25 10:00 Q6HR PRN To be given with Dermerol Plan A 59 yo female with a past medical history of bladder tumor w/ hematuria, history of uterine fibroid, and remote history of hypertension over 27 years ago on no medication. Patient was admitted for bladder tumor w/ hematuria s/p cystoscopy, bladder biopsy, and resection of bladder tumor. Cardiology consulted for abnormal cardiac rhythm. #Abnormal EKG #rule out arrhythymia, ruled out #Sinus tachycardia, improved #Pedal Edema, trace Abnormal EKG noted to have deep Q waves likely from previous ischemia and r waves. Denied chest pain or chest pressure. NO ST elevation noted. Given history of snoring PAH can not be ruled out given trace pedal edema. Positive for palpitations. Echo unremarkable EKG: Sinus Tachycardia, QRS 102, QTC 439, V1, V2 deep q waves, and V3 V4 noted r waves. TSH: 0.9, A1c 4.7 Lipid Panel: Triglycerides 85, Cholesterol 168, LDL 88, HDL 63 ASCVD: 5.7% Moderate intensity statins Plan -Please follow up with PCP as outpatient. -Atorvastatin 20 mg PO HS -K>4 and Mag >2 -Monitor patient Electrolytes. #Hypertension Past medical history of hypertension, initially diagnosed 27 years ago and has been off medication for several years as massiel stated home readings within normal limits. Patient follow with PCP, Yina Gibbons, who does never resumed anti-hypertensive medication. Plan -Managed by hospitalist team -Amlodipine 10 mg PO qday #bladdder Tumor s/p resection #Hematuria # large tumor on the dome of the bladder and had cystoscopy with bladder biopsy, fulguration and transurethral resection of part of the bladder tumor by Dr. Nava Plan -Managed by primary team Health Maintenance: Disp: Pt is currently admitted to floors for further management of bladder resection,cardiology consulted for abnormal EKG. FEN: Full liquid diet, advance as tolerated DVT: ambulatory Code: Full - The patient's plan was discussed with attending Dr. Payam Raines MD PGY1 Internal Medicine Attending Provider Attestation/Addendum I have personally seen and examined the patient separately on the above date of service and discussed the plan of care with the resident. I reviewed the resident Dr. Elodia Raines consultation progress note and agree with the resident findings and plan in the note above and have also edited the documentation to reflect my findings and plan. Hadley Hare M.D. Interventional Cardiology
--- NOTE | 2025-04-22 14:46 | ESDS_ITS ---
<Statement entered by Elba Siegel MD - 04/28/25 08:55> I reviewed above note and agree with findings and plans. I have also personally examined the patient with medicine team and went over assessment and plan with medical team including director internal audit and resident physician. Planned Discharge Date 04/22/25 DS: Providers Provider Date of admission: 04/21/25 15:07 Primary care physician: JEANETTE Rossi Admitting Provider: Gee Nava MD Attending Provider on Admission: Elba Siegel MD Consults: 04/21/25 10:16 Consult to Adult Hospitalist Urgent Comment: patient in recovery, post op Consulting Provider: Arnol Redd 04/21/25 10:18 Consult to Cardiology Urgent Comment: Arrythmia Consulting Provider: Hadley Hare Instructions: patient in recovery Attending Provider on DC: Elba Siegel MD Discharging Provider: Elba Siegel MD Anticipated date of discharge: 04/22/25 DS: Diagnosis Problem List Completed Was Problem List Reviewed/Reconciled?: Yes Hospital Course Hospital Course Hospital course: Hospital course: Ms. Price is a 59-year-old female with past medical history of morbid obesity, hypertension, pelvic mass and bladder mass who was admitted to [facility] on April 21, 2025, patient initially presented to surgery daycare and underwent cystoscopy, bladder biopsy, fulguration and transurethral resection of bladder tumor. Postop patient was noted to be hypertensive with suspicion of arrhythmia, hence patient was admitted for observation to the hospital, hospitalist team and cardiology were consulted by urologist. Patient did receive 5 mg x 3 dosage of hydralazine, patient was started on amlodipine 5 mg and clonidine as needed, blood pressure therapy was optimized. Patient did complain of significant pain, pain was managed by urology. Patient underwent echocardiogram, was seen by cardiology. Echocardiogram findings unremarkable, patient was stable postop throughout the hospital course, further plan is to discharge patient home, prior to discharge Case discussed with both social service worker and urologist. Patient to continue aml odipine 10 mg daily, atorvastatin 20 mg daily and Warrior as needed for pain. Patient will be discharged with Bonilla catheter per urology, patient to follow-up in 2 weeks outpatient in urology office. Patient is stable for discharge, responded well to hospital treatment. Discharge diagnosis: #Bladder tumor status post transurethral resection of part of bladder tumor 04/21 #Hypertension #Morbid obesity #Right pelvic cystic mass #Abnormal EKG #Rule out arrhythmia #Hematuria Case discussed with Attending Dr. Siegel. Diana Velasquez PGY1 Disclaimer: This note was dictated by speech recognition. Minor errors in domestic maid may be present due to voice recognition software. Status at Discharge Functional status at discharge: independent ambulation Overall status at discharge: patient is progressing back to baseline Time Spent with Patient Time attestation: Total time spent providing and/or coordinating discharge services: Time spent: Greater than 30 minutes Quality: VTE Deep Vein Thrombosis/Pulmonary Embolism Present on Admission: No Exam Vital Signs Temp Pulse Resp BP Pulse Ox O2 Del Method O2 Flow Rate 97.1 F 103 H 14 155/85 H 98 Room Air 5 04/22/25 12:00 04/22/25 14:31 04/22/25 14:31 04/22/25 12:00 04/22/25 12:00 04/22/25 12:04/21/25 09:40 Narrative Exam Physical Exam General: Awake and in no acute distress. Conversational and non-toxic appearing. HEENT: Normocephalic, atraumatic, mucous membranes moist. Heart: Tachycardia, regular rhythm, no murmurs. Lungs: Clear to auscultation with no wheezing or crackles. Abdomen: Soft, obese, nondistended, nontender, positive bowel sounds. Lower abdomen tenderness. Bonilla catheter noted. Neurologic: Alert and oriented x3, no gross neurological deficit, and patient able to move all 4 extremities. Extremities: No edema. Skin: No rash or ecchymoses. Discharge Plan Plan Patient Disposition: HOME (Self Care) Patient condition on transfer: Stable Prescriptions/Referrals Prescriptions/Med Rec: New hydrocodone-acetaminophen 5-325 mg tablet 1 tab PO Q6H MDD 4 PRN (Reason: pain) Qty: 30 0RF amlodipine 10 mg tablet 10 mg PO QDAY 30 Days Qty: 30 0RF atorvastatin 20 mg Tablet 20 mg PO HS 30 Days Qty: 30 0RF Referrals: Gee Nava MD [Physician] - Yina Ramirez FNP [Primary Care Provider] - Patient/Caregiver Discharge Instructions Discharge Activity: activity as tolerated Other Discharge Activity Instructions:: Continue amlodipine 10 mg for blood pressure management daily. Take atorvastatin 20 mg at bedtime for high cholesterol. Continue ciprofloxacin 500 mg twice daily for 2 weeks, Warrior as needed for pain. You will be discharged with Bonilla catheter, follow-up in [address] Nava's office. Follow-up outpatient with primary care physician, follow-up on echocardiogram results. Return to emergency department if symptoms worsen. Other Discharge Diet Instructions: Low-sodium low-fat diet Education Materials: Surgery Anesthesia After, Cholesterol Medicines, Low-Salt Choices, Weight Management: Getting Started, Hypertension Dc, Discharge Instructions for ... Print Language: Czech Stand Alone Forms: [facility] Award Info., Patient Portal Info Letter Discharge Order Discharge Orders: Discharge (Routine); Ordered 04/22/25 Ordered By: Diana Velasquez Quality Discharge Quality Measures none
--- NOTE | 2025-04-22 15:07 | PC.SS ---
SS met with patient regarding her d/c plan. Pt is alert/oriented. Pt was admitted for Trubt [id number] Post OP Turp. Pt confirmed demographic and contact information is correct on facesheet. Pt resides with son. Pt ambulates independently without assistance or DME. Pt is ok with all ADLs. Pt states she has cane which she utilizes when needed. Patient?s pharmacy of choice is [facility] in [place]. Pt named her friend, Marion Sheldon medical decision maker if she is unable. Patient?s choice is to return home upon d/c. Pt states she is not diabetic and is not on dialysis. Pt states she followed up with PCP last year. Pt states she will make an appointment with PCP. D/C plan: Return home Next of Kin: Marion Sheldon, friend, phone# [phone] PCP: [facility] Address: Correct on facesheet
--- NOTE | 2025-04-22 19:54 | ECHO_ITS ---
Transthoracic Echo Report Ht (in): 66 Wt (lb): 333 Exam Location: Echo Lab Status: Inpatient Slag Motor Operator: Rochelle Liao Indications: Procedure Performed: BP: 162 / 116 HR: 90 Technical Quality: Technically Difficult Due To Body Habitus MEASUREMENTS (Male / Female) Normal Values 2D ECHO LV Diastolic Diameter PLAX 5.3 cm 4.2 - 5.9 / 3.9 - 5.3 cm LV Systolic Diameter PLAX 3.5 cm IVS Diastolic Thickness 0.9 cm 0.6 - 1.0 / 0.6 - 0.9 cm LVPW Diastolic Thickness 0.8 cm 0.6 - 1.0 / 0.6 - 0.9 cm LV Relative Wall Thickness 0.3 LVOT Diameter 2.3 cm LA Volume Index 15.9 cm?/m? 16 - 28 cm?/m? Ascending Aorta Diameter 3.1 cm DOPPLER AV Peak Velocity 175.0 cm/s AV Peak Gradient 12.3 mmHg LVOT Peak Velocity 105.0 cm/s LVOT Peak Gradient 4.4 mmHg AV Area Cont Eq pk 2.5 cm? MV Area PHT 4.7 cm? Mitral E Point Velocity 65.5 cm/s Mitral A Point Velocity 67.9 cm/s Mitral E to A Ratio 1.0 LV E' Lateral Velocity 10.0 cm/s Mitral E to LV E' Lateral Ratio 6.5 LV E' Septal Velocity 6.7 cm/s Mitral E to LV E' Septal Ratio 9.7 PV Peak Velocity 79.9 cm/s PV Peak Gradient 2.6 mmHg FINDINGS Left Ventricle Normal left ventricular size, wall thickness, systolic function with no obvious regional wall motion abnormalities. Normal left ventricular diastolic filling pattern for age. The ejection fraction is visually estimated at 55 %. Right Ventricle The right ventricle is normal in size and systolic function. The estimated right ventricular systolic pressure can not be determined due to inadequate Doppler signal. Left Atrium The left atrium is normal by two-dimensional, color flow and Doppler imaging with no structural abnormalities, no thrombus formation present. Right Atrium The right atrium is normal by two-dimensional imaging, color flow and Doppler imaging with no structural abnormalities, no thrombus formation present. Atrial Septum The interatrial septum appears normal with no evidence of a shunt. Aorta The aorta is normal by two-dimensional, color flow and Doppler interrogation. Mitral Valve The mitral valve is normal by two-dimensional, color flow and Doppler interrogation. There is no significant mitral valve regurgitation, stenosis or prolapse. Aortic Valve The aortic valve is trileaflet and normal by two-dimensional, color flow and Doppler interrogation. There is trace aortic regurgitation. Tricuspid Valve The tricuspid valve is normal by two-dimensional, color flow and Doppler interrogation. There is trace tricuspid regurgitation. Pulmonic Valve The pulmonic valve is not well visualized. There is no significant pulmonic valve regurgitation. Vessels The pulmonary artery appears normal. The inferior vena cava pulmonary and hepatic veins appear normal. Pericardium The pericardium is normal by two-dimensional imaging. There is no significant pericardial effusion. CONCLUSIONS Inidcations: Tachycardia, PAC`s and rule out arhythymia Normal LV size and function. Estimated EF 55-60%. Normal Diastolic function. Normal RV size and function. Trace TR, AI. No pericardial effusion. Hadley Hare (Electronically Signed) Final Date: 22 April 2025 15:10
== END 2025-04-22 15:41 | disposition home or self-care (01) ==
LOC: S3SX 15:09
PROVIDERS: Anesthesiology; Admitting Provider Surgery; PCP Nurse Practitioner Family; Referring Provider Surgery; Visit Provider Internal Medicine
PROC: 0TBB8ZZ Excision of Bladder, Via Natural or Artificial Opening Endoscopic (ICD-10-PCS; CPT 52235; principal; 2025-04-21 08:30)
DX: C67.9 Malignant neoplasm of bladder, unspecified (principal); Z68.43 Body mass index [BMI] 50.0-59.9, adult; I44.4 Left anterior fascicular block; I25.10 Atherosclerotic heart disease of native coronary artery without angina pectoris; I10 Essential (primary) hypertension; Z90.49 Acquired absence of other specified parts of digestive tract; Z86.018 Personal history of other benign neoplasm; D64.9 Anemia, unspecified; E66.01 Morbid (severe) obesity due to excess calories; G89.29 Other chronic pain
CPT/HCPCS: 52235; 36415; 71045; 74176; 80053; 80061; 80069; 81001; 83036; 83735; 84439; 84443; 85025; 87086; 93005; 93306; 96361; 96374; 96375; A4217; A4649; G0378; J0131; J0360; J1100; J1956; J2250; J2405; J2704; J2765; J3010; J3475; J3490; J7120; A9270; J1805; J1920